=== PATIENT | female | born 1985 | race Hispanic/Latino ===

== ENCOUNTER 2018-12-28 12:11 | Emergency (ER) | payer OTHER ==
[2018-12-28 12:28] VITALS: BP 147/78
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
[2018-12-28 13:29] LABS: HCG Qualitative,Urine Negative (Negative)
[2018-12-28] MEDS ORDERED: HYDROcodone/ACETAMINOPHEN 10-325MG TAB PO ONE (13:33)
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
== END 2018-12-28 14:12 | disposition home or self-care (01) ==
LOC: ED 12:11
DX: S39.012A Strain of muscle, fascia and tendon of lower back, initial encounter (principal); Z88.5 Allergy status to narcotic agent; Z79.899 Other long term (current) drug therapy; Z98.51 Tubal ligation status; V89.2XXA Person injured in unspecified motor-vehicle accident, traffic, initial encounter; Y93.89 Activity, other specified; Y92.488 Other paved roadways as the place of occurrence of the external cause; Y99.8 Other external cause status
CPT/HCPCS: 72100; 81025